=== PATIENT | female | born 1940 | race Caucasian/White ===

== ENCOUNTER 2021-07-16 05:58 | Emergency (ER) | payer MEDICARE ==
[2021-07-16] MEDS ORDERED: NORCO 5/325 MG PO ONE (06:47)
[2021-07-16] MEDS ORDERED: NORCO 5/325 MG ONE (06:51)
--- NOTE | 2021-07-16 06:55 | ERPHSYRPT ---
- History of Present Illness Source: patient Exam Limitations: no limitations Patient Subjective Stated Complaint: Patient fell at home at approx 0500 today. She denies hitting her head. She states she lost her footing while walking with her walker and just fell. Denies being dizzy prior to fall. She denies hitting any furniture or other objects while falling. States, "I just hit the floor." Her only c/o is pain in the center of her back. Triage Nursing Assessment: Patient arrived by ambulance. She is alert and oriented and answering questions appropriately. She has noticable tremors to BUE while resting in bed. PERRL. CASILLAS WNL for patient per her reports. No bruising, swelling, or abnormalities visibly noted to back. Occurred: this morning Reason for Fall: lost balance Injuries/Pain Location: head, upper extremity, back Loss of Consciousness: no loss of consciousness Quality: sharpness Severity of Pain-Max: moderate Severity of Pain-Current: moderate Modifying Factors: Improves With: rest. Worsens With: movement Associated Symptoms (Fall): back pain, extremity injury, headache, muscle spasms, trouble walking, No confusion, No chest pain, No dizziness, No lightheadedness, No neck pain, No ringing in ears, No seizures, No shortness of breath, No vision changes Hx Tetanus, Diphtheria Vaccination/Date Given: Yes Hx Influenza Vaccination/Date Given: Yes Hx Pneumococcal Vaccination/Date Given: Yes Immunizations Up to Date: Yes <KIMMY TAYLOR - Last Filed: 07/16/21 06:56> <JULY GONZALEZ - Last Filed: 07/16/21 08:14> - History of Present Illness Time Seen by Provider: 07/16/21 06:46 Physician History: 81-year-old female issues with balance at her baseline with questionable history of parkinsonism presented in the ER with chief complaint of fall this morning. Patient reports she woke up and was trying to get on her 4 mahoney, lost balance and fell backward hitting her back and head against the floor. No loss of consciousness. She is complaining of mild headache but reason for ER visit is pain in the mid and lower back moderate to severe sharp with movement and palpation and better with being still. No difficulty movements of lower extremities. Also have injury left thumb. Denies any chest pain palpitations or shortness of breath before or after the fall. No abdominal pain nausea or vomiting. (KIMMY TAYLOR) Allergies/Adverse Reactions: aripiprazole [From [facility]] Allergy (Verified 07/16/21 05:59) Home Medications: Divalproex Sodium [Depakote] 250 mg PO TID 07/16/21 [History] Levothyroxine Sodium 88 mcg PO DAILY 07/16/21 [History] Losartan Potassium 50 mg [Cozaar 50 MG] 50 mg PO DAILY 07/16/21 [History] Temazepam 15 mg [Restoril 15 MG] 30 mg PO HS 07/16/21 [History] Travel Risk - International Travel Have you traveled outside of the country in past 3 weeks: No - Coronavirus Screening Are you exhibiting any of the following symptoms?: No Close contact with a COVID-19 positive Pt in past 14-21 Days: No - Vaccine Status Have you recieved a Covid-19 vaccination: Yes [employer]: [employer] - Vaccination Dates Date of 2cond Vaccination (if applicable): December 2020 <KIMMY TAYLOR - Last Filed: 07/16/21 06:56> - Review of Systems Constitutional: No Symptoms Eyes: No Symptoms Ears, Nose, & Throat: No Symptoms Respiratory: No Symptoms Cardiac: No Symptoms Abdominal/Gastrointestinal: No Symptoms Genitourinary Symptoms: No Symptoms Musculoskeletal: Back Pain, Fall, Injury, Joint Redness, Joint Pain Skin: No Symptoms Neurological: Headache Psychological: No Symptoms Endocrine: No Symptoms Hematologic/Lymphatic: No Symptoms Immunological/Allergic: No Symptoms <KIMMY TAYLOR - Last Filed: 07/16/21 06:56> - Past Medical History Pertinent Past Medical History: Yes Neurological History: No Pertinent History ENT History: Cataracts Cardiac History: Hypertension Respiratory History: No Pertinent History Endocrine Medical History: Hypothyroidism Musculoskeletal History: Fractures Other Medical History: BIPOLAR DISORDER - SEES THERAPIST IN [place]. PATIENT WITH RESTING TREMORS. PATIENT REPORTS PARKINSONS RUNS IN THE FAMILY - MOTHER HAD IT AND BROTHER HAS IT. She has never been diagnosed with parkinsons by a doctor. - Past Surgical History Past Surgical History: Yes Gastrointestinal: Appendectomy, Cholecystectomy, Hernia Repair Musculoskeletal: No Pertinent History Female Surgical History: Tubal Ligation - Social History Smoking Status: Never smoker Exposure to second hand smoke: No Drug Use: none Patient Lives Alone: No - Female History Hx Now: No <KIMMY TAYLOR - Last Filed: 07/16/21 06:56> - Maben Coma Score Best Eye Response (Kira): (4) open spontaneously Best Verbal Response (Maben): (5) oriented Best Motor Response (Maben): (6) obeys commands Maben Total: 15 - Physical Exam General Appearance: no apparent distress, alert Head Injury: no evidence of injury, No lacerations, No raccoon eyes, No swelling, No tenderness Eye Exam: PERRL/EOMI, eyes nml inspection ENT Exam: airway nml, nml ext.inspection, No evidence of ENT injury, No dental injury Neck Exam: supple, trachea midline, full range of motion, normal alignment, normal inspection Respiratory/Chest Exam: normal breath sounds, respiratory distress, No chest tenderness Cardiovascular Exam: normal heart sounds, regular rate/rhythm Gastrointestinal Exam: soft, normal bowel sounds, tenderness (Minimal tenderness which is chronic from previous multiple surgeries) Back Exam: normal inspection, vertebral tenderness (Lower thoracic and lumbar spinal and paraspinal), decreased range of motion, muscle spasm Extremity Exam: normal range of motion, capillary refill <3 sec, pain with movement (Left thumb) Neurologic Exam: alert, oriented x 3, cooperative, siene maker II-XII nml as tested, normal mood/affect, sensation nml, No motor deficits Skin Exam: normal color SpO2 Interpretation: normal SpO2: 92 O2 Delivery: Room Air <KIMMY TAYLOR - Last Filed: 07/16/21 06:56> - Nursing Vital Signs Nursing Vital Signs: Initial Vital Signs Temperature 97.9 F 07/16/21 06:00 Pulse Rate 84 07/16/21 06:00 Respiratory Rate 14 07/16/21 06:00 Blood Pressure 178/99 07/16/21 06:00 O2 Sat by Pulse Oximetry 92 L 07/16/21 06:00 Pain Scale Pain Intensity 3 Ordered Tests: Active Orders 24 hr Category Date Time Status POCT Glucose Check STAT Care 07/16/21 06:51 Active CERVICAL SPINE WO CONTRAST [CT] Stat Exams 07/16/21 06:47 Taken HAND (MINIMUM 3 VIEWS) Stat Exams 07/16/21 Taken HEAD WITHOUT CONTRAST [CT] Stat Exams 07/16/21 06:47 Taken LUMBAR SPINE W/O [CT] Stat Exams 07/16/21 06:47 Taken THORACIC SPINE W/O CONTRAST [CT] Stat Exams 07/16/21 06:50 Taken POCT GLUCOSE Stat Lab 07/16/21 07:52 Completed POCT GLUCOSE Stat Lab 07/16/21 07:52 Received Medication Summary Discontinued Medications Generic Name Dose Route Start Last Admin Trade Name Zbigniew PRN Reason Stop Dose Admin Hydrocodone Bitart/Acetaminophen 1 tab 07/16/21 06:47 07/16/21 06:51 Hydrocodone/Apap 5/325 Mg Tablet PO 07/16/21 06:48 1 tab STAT ONE Administration Hydrocodone Bitart/Acetaminophen Confirm 07/16/21 06:51 Hydrocodone/Apap 5/325 Mg Tablet Administered 07/16/21 06:52 Dose 1 tab .ROUTE .STK-MED ONE Methylprednisolone Sodium 0 mg 07/16/21 08:00 Succinate 125 mg/ Sterile IV 07/16/21 08:01 Water 2 ml STAT ONE Lorazepam 0.5 mg 07/16/21 08:00 Lorazepam 2 Mg/1 Ml 2 Mg Vial IV 07/16/21 08:01 STAT ONE Morphine Sulfate 2 mg 07/16/21 07:59 Morphine Sulfate 2 Mg/Ml Inj IV 07/16/21 08:00 STAT ONE Ondansetron HCl 4 mg 07/16/21 07:59 Ondansetron Hcl 4 Mg/2 Ml Vial IV 07/16/21 08:00 STAT ONE Lab/Rad Data: Laboratory Results 07/16/21 Range/Units 07:52 POC Glucometer 102 (74 to 106) mg/dL - Progress Progress: unchanged <KIMMY TAYLOR - Last Filed: 07/16/21 06:56> - Progress Counseled pt/family regarding: diagnosis, need for follow-up, rad results <JULY GONZALEZ - Last Filed: 07/16/21 08:14> - Progress Progress Note: 07/16/21 06:56 Work-up is pending, care is transferred to Dr. Gonzalez at shift change. (KIMMY TAYLOR) 07/16/21 07:47 Left hand x-ray is negative for any acute fracture or dislocation. CT scan of the lumbar spine shows no acute fracture or subluxation. CT scan of thoracic spine shows a T11 compression fracture that is less than 25% height loss. There is no evidence of spinal cord encroachment or compression. CAT scan of the cervical spine without contrast shows no acute fracture or subluxation. CAT scan of the head shows no acute intracranial abnormality. There is no bony fractures. 07/16/21 08:10 Medical decision making: This patient has a less than 25% height loss T11 compression fracture without evidence of spinal cord encroachment. The plan is to provide her with medication acutely to help control her pain, be fitted for a thoracic spine fracture brace and then referral to back specialist for further management instructions including referral to physical therapy as indicated and referral to chronic pain specialist as indicated. (JULY GONZALEZ) <KIMMY TAYLOR - Last Filed: 07/16/21 06:56> - Departure Departure Disposition: Home Critical Care Time: No <JULY GONZALEZ - Last Filed: 07/16/21 08:14> - Departure Clinical Impression: Compression fracture of T11 vertebra, Fall with injury Condition: Stable Referrals: OLESYA ATKINSON MD [Primary Care Provider] - Follow up/PCP as directed Additional Instructions: Take your medications as prescribed. Follow-up with orthopedic/back clinic as an outpatient for further management and instructions. Minimize your activity to walking. Wear your back brace. Prescriptions: Hydrocodone/APAP 5/325 [Sharon 5/325 mg] 1 each PO Q8H PRN PRN #8 tablet MDD 3 PRN Reason: Pain Cyclobenzaprine HCl 5 mg PO TID #10 tablet Naproxen 500 mg [Naprosyn 500 MG] 500 mg PO BID #10 tablet
[2021-07-16] MEDS ORDERED: MORPHINE SULFATE 2 MG INJ IV ONE (07:59)
[2021-07-16] MEDS ORDERED: Zofran 4 MG/2 ML VIAL IV ONE (07:59)
[2021-07-16] MEDS ORDERED: Ativan 2 MG/1 ML VIAL IV ONE (08:00)
[2021-07-16] MEDS ORDERED: solu-MEDROL 125 MG, Sterile H2O 10 ml 2 ML IV ONE ×2 (08:00)
[2021-07-16] MEDS ORDERED: Ativan 2 MG/1 ML VIAL ONE (08:15)
[2021-07-16] MEDS ORDERED: solu-MEDROL ONE (08:15)
[2021-07-16 09:19] VITALS: BP 170/78; PULSE 81; O2SAT 94
--- NOTE | 2021-07-16 09:55 | XRAY ---
Indication: Status post fall. Multiple contiguous axial images obtained through the head without contrast. Comparison: None Age-appropriate global atrophy and minimal periventricular degenerative micro-ischemia. No acute intracranial hemorrhage, abnormal extra-axial fluid collection, or mass effect. Fourth ventricle is midline without hydrocephalus. Bony calvarium intact. Visualized paranasal sinuses and mastoid air cells are clear. Impression: Nonacute senile brain.
--- NOTE | 2021-07-16 09:57 | XRAY ---
Indication: Status post fall. Multiple contiguous axial images obtained through the cervical spine. Sagittal and coronal reformatted images obtained. Comparison: None Age-related osteopenia. Axial images negative for acute fracture, suspicious bony lesions, or spinal canal stenosis. Minimal multilevel endplate spurring and mild multilevel bilateral degenerative facet arthropathy. Sagittal and coronal reformatted images demonstrates normal alignment with mild C5-C7 degenerative disc space narrowing. No acute compression fracture, subluxation, or jumped facet. Normal appearing craniocervical junction. Visualized noncontrasted soft tissues demonstrates mild right and minimal left carotid calcifications. Lung apices are clear. Impression: 1. Negative acute fracture/subluxation. 2. Osteopenia and minimal/mild multilevel degenerative changes.
--- NOTE | 2021-07-16 09:59 | XRAY ---
Indication: Status post fall. Multiple contiguous axial images obtained through the thoracic spine. Sagittal and coronal reformatted images obtained. Comparison: None Age-related osteopenia. T11 vertebral body demonstrates nondisplaced minimal compression fracture with less than 25% height loss. No spinal canal or foraminal encroachment. Remaining levels demonstrates mild multilevel endplate spurring. Sagittal and coronal reformatted images demonstrates normal thoracic alignment. Disc spaces maintained. Visualized noncontrasted soft tissues demonstrates mild bilateral lung dependent atelectasis, mild scattered vascular calcifications, and cholecystectomy clips. Impression: 1. T11 compression fracture without spinal canal or foraminal compromise. 2. Osteopenia and mild multilevel degenerative changes.
--- NOTE | 2021-07-16 10:05 | XRAY ---
Indication: Status post fall. Multiple contiguous axial images obtained through the lumbar spine. Sagittal and coronal reformatted images obtained. Comparison: February 18, 2011. Age-related osteopenia. Axial images negative for acute fracture, suspicious bony lesions, or spinal canal stenosis. There remains minimal broad-based L4-S1 disc bulge and minimal L5-S1 degenerative vacuum disc phenomena. No obvious large disc herniation. Facets are symmetric. Sagittal and coronal reformatted images again demonstrates normal lumbar lordosis with stable minimal levoscoliosis and L5-S1 disc space narrowing. No acute compression fracture or subluxation. Visualized noncontrasted soft tissues demonstrates worsening scattered mild aortoiliac calcifications. Stable bilateral renal pelvocaliectasis. Impression: 1. Negative acute fracture/subluxation. 2. Again incidental osteopenia, L4-S1 degenerative disc disease, minimal scoliosis, mild arteriosclerotic disease, and bilateral renal pelvocaliectasis.
--- NOTE | 2021-07-16 10:07 | XRAY ---
Indication: Thumb swelling and bruising following fall. Comparison: None 3 view left hand demonstrates nondisplaced avulsion type fracture base distal 1st phalanx with soft tissue swelling. Elsewhere incidental osteopenia, moderate 1st metacarpal multangular degenerative arthropathy, mild degenerative changes all IP joints, and radiocarpal joint space loss.
== END 2021-07-16 09:18 | disposition home or self-care (01) ==
LOC: ED 05:58
DX: S22.080A Wedge compression fracture of T11-T12 vertebra, initial encounter for closed fracture (principal); W01.0XXA Fall on same level from slipping, tripping and stumbling without subsequent striking against object, initial encounter; Z91.81 History of falling; Y92.009 Unspecified place in unspecified non-institutional (private) residence as the place of occurrence of the external cause; R51.9 Headache, unspecified; I10 Essential (primary) hypertension; R25.1 Tremor, unspecified; Z79.891 Long term (current) use of opiate analgesic
CPT/HCPCS: 70450; 72125; 72128; 72131; 73130; 82947; 96374; 96375; 99284; J2060; J2930; A9270-GY

== ENCOUNTER 2021-12-04 07:36 | Emergency (ER) | payer MEDICARE ==
[2021-12-04] MEDS ORDERED: APRESOLINE 20 MG/ML INJ IV ONE ×2 (08:10→09:51)
[2021-12-04] MEDS ORDERED: APRESOLINE 20 MG/ML INJ ONE ×2 (08:11→11:13)
--- NOTE | 2021-12-04 08:12 | ERPHSYRPT ---
- History of Present Illness Source: EMS Exam Limitations: clinical condition Patient Subjective Stated Complaint: PT HERE FOR GENERALIZED WEAKNESS,EMS WAS CALLED TO HOUSE FOR A PT WHO WAS LETHERGIC. PT IS A POOR HISTORIAN, FAMILY NOT HERE AT TRIAGE, EMS STATES SHE FELL YESTERDAY AND WAS SEEN BY FAMILY, PT DENIES ANY PAIN OR INJURY Triage Nursing Assessment: PT ALERT BUT CONFUSED TO TIME AND PLACE, HAS FACIAL DROOPING, AND SOME SLURRED SPEECH, MOVES ALL EXT WELL. PT HAS ABRASIONS TO UPPER LIP AND FORHEAD, Physician History: 81 yo wf w MSC of unknown time frame. EMS states that pt fell yesterday and was seen by her PCP yesterday. Pt arrived w good airway, marginally alert, and oriented to name only. She has a R facial droop and appears to have generalized weakness. Pt is pleasant and is in NAD at this time. Timing/Duration: other (Unknown) Severity: moderate Character of Deficits: new weakness (L facial droop), Right Facial Deficits: cannot stand Baseline/Normal Cognition: alert but confused Current Cognition: alert/disoriented to time (and place) Associated Symptoms: confusion, slurred speech Allergies/Adverse Reactions: aripiprazole [From [employer]Novadiol] Allergy (Verified 12/04/21 08:01) Home Medications: Divalproex Sodium [Depakote] 250 mg PO TID 07/16/21 [History] Levothyroxine Sodium 88 mcg PO DAILY 07/16/21 [History] Losartan Potassium 50 mg [Cozaar 50 MG] 50 mg PO DAILY 07/16/21 [History] Temazepam 15 mg [Restoril 15 MG] 30 mg PO HS 07/16/21 [History] Carbidopa/Levodopa 25/100 mg [Sinemet 25/100 MG] 1 ea DAILY 12/04/21 [History] Gabapentin 300 mg [Neurontin 300 mg] 1 ea BID 12/04/21 [History] Hx Tetanus, Diphtheria Vaccination/Date Given: Yes Hx Influenza Vaccination/Date Given: Yes Hx Pneumococcal Vaccination/Date Given: Yes Immunizations Up to Date: Yes Travel Risk - International Travel Have you traveled outside of the country in past 3 weeks: No - Coronavirus Screening Are you exhibiting any of the following symptoms?: No - Vaccine Status Have you recieved a Covid-19 vaccination: Yes Vice President Diversity: Moderna - Vaccination Dates Date of 2cond Vaccination (if applicable): December 2020 - Review of Systems All Other Systems: Unable due to condition - Past Medical History Pertinent Past Medical History: Yes Neurological History: No Pertinent History ENT History: Cataracts Cardiac History: Hypertension Respiratory History: No Pertinent History Endocrine Medical History: Hypothyroidism Musculoskeletal History: Fractures Other Medical History: BIPOLAR DISORDER - SEES THERAPIST IN [place]. P ATIENT WITH RESTING TREMORS. PATIENT REPORTS PARKINSONS RUNS IN THE FAMILY - MOTHER HAD IT AND BROTHER HAS IT. She has never been diagnosed with parkinsons by a doctor. - Past Surgical History Past Surgical History: Yes Gastrointestinal: Appendectomy, Cholecystectomy, Hernia Repair Musculoskeletal: No Pertinent History Female Surgical History: Tubal Ligation - Social History Smoking Status: Never smoker Exposure to second hand smoke: No Drug Use: none Patient Lives Alone: No Significant Family History: no pertinent family hx - Nursing Vital Signs Nursing Vital Signs: Initial Vital Signs Temperature 97.0 F 12/04/21 07:41 Pulse Rate 68 12/04/21 07:41 Respiratory Rate 16 12/04/21 07:41 Blood Pressure 209/93 12/04/21 07:41 O2 Sat by Pulse Oximetry 95 12/04/21 07:41 Pain Scale Pain Intensity 0 Hypertensive - Kira Coma Scale Best Eye Response (Kira): (3) open to voice Best Verbal Response (Anderson): (4) confused conversation Best Motor Response (Kira): (6) obeys commands Anderson Total: 13 - Physical Exam General Appearance: lethargy Eye Exam: bilateral eye: normal inspection, PERRL Ears, Nose, Throat Exam: normal ENT inspection, TMs normal, pharynx normal, moist mucous membranes Neck Exam: normal inspection, non-tender, supple, full range of motion, No meningismus, No mass, No Brudzinski, No Kernig's, No carotid bruit Respiratory: airway intact, crackles/rales (Rales bases L>R) Cardiovascular: regular rate/rhythm, normal heart sounds, normal peripheral pulses, No murmur Gastrointestinal: soft, normal bowel sounds, No tenderness Back Exam: normal inspection Extremity Exam: pedal edema (1+B) Mental Status: cooperative, depressed affect, disoriented to place, disoriented to time, lethargy, 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 Exam: PERRL, facial droop (L sided facial droop), No abnormal eye position Motor/Sensory: negative Babinski's sign, weak motor strength RUE (Pt appears to have symmetric upper/lower extremity weakness), weak motor strength LUE, weak m otor strength RLE, weak motor strength LLE DTR: bicep (R): 2+, bicep (L): 2+ Skin Exam: normal color, warm, dry, No rash SpO2 Interpretation: normal SpO2: 95 O2 Delivery: Room Air - Course Nursing assessment & vital signs reviewed: Yes EKG Interpreted by Me: RATE (NSR/R62/Normal QT-QTc/Nonspecific Twave abnormality V3-V6) - Radiology Exams Chest X-ray Interpretation: Discussed w/ radiologist (Nothing acute) - CT Exams Head CT Interpretation: Discussed w/radiologist (2x2.5x2cm area of hypoattenuation R occipital lobe of undetermined chronicity) Ordered Tests: Active Orders 24 hr Category Date Time Status EKG-ER Only STAT Care 12/04/21 07:48 Completed NPO (ED) STAT Care 12/04/21 07:47 Completed CHEST 1 VIEW (PORTABLE) Stat Exams 12/04/21 07:47 Completed HEAD WITHOUT CONTRAST [CT] Stat Exams 12/04/21 07:47 Completed ABG [ARTERIAL BLOOD GASES] Stat Lab 12/04/21 08:55 Completed ACETAMINOPHEN Stat Lab 12/04/21 08:04 Completed CBC W DIFF Stat Lab 12/04/21 08:04 Completed CMP Stat Lab 12/04/21 08:04 Completed CULTURE,URINE Stat Lab 12/04/21 08:30 Received ETHYL ALCOHOL Stat Lab 12/04/21 08:04 Completed Lactic Acid Stat Lab 12/04/21 07:58 Completed PROTIME WITH INR Stat Lab 12/04/21 08:04 Completed PTT Stat Lab 12/04/21 08:04 Completed SALICYLATE Stat Lab 12/04/21 08:04 Completed T4 (Thyroxine) Stat Lab 12/04/21 08:04 Completed TROPONIN Q3H Lab 12/04/21 08:04 Completed TROPONIN Q3H Lab 12/04/21 11:30 Completed TSH [TSH, 3RD Generation] Stat Lab 12/04/21 08:04 Completed UA W/RFX CULTURE Stat Lab 12/04/21 08:30 Completed Urine Triage Profile Stat Lab 12/04/21 08:50 Completed Medication Summary Discontinued Medications Generic Name Dose Route Start Last Admin Trade Name Zbigniew PRN Reason Stop Dose Admin Aspirin 300 mg 12/04/21 08:19 12/04/21 08:25 Aspirin 300 Mg Supp.Rect RC 12/04/21 08:20 300 mg STAT STA Administration Aspirin Confirm 12/04/21 08:20 Aspirin 300 Mg Supp.Rect Administered 12/04/21 08:21 Dose 300 mg RC .STK-MED ONE Hydralazine HCl 10 mg 12/04/21 08:10 12/04/21 08:12 Hydralazine Hcl 20 Mg/Ml Vial IV 12/04/21 08:11 10 mg STAT ONE Administration Hydralazine HCl Confirm 12/04/21 08:11 Hydralazine Hcl 20 Mg/Ml Vial Administered 12/04/21 08:12 Dose 20 mg .ROUTE .STK-MED ONE Hydralazine HCl 10 mg 12/04/21 09:51 12/04/21 09:58 Hydralazine Hcl 20 Mg/Ml Vial IV 12/04/21 09:52 10 mg STAT ONE Administration Hydralazine HCl Confirm 12/04/21 11:13 Hydralazine Hcl 20 Mg/Ml Vial Administered 12/04/21 11:14 Dose 20 mg .ROUTE .STK-MED ONE Lab/Rad Data: Laboratory Result Diagrams 12/04/21 08:04 12/04/21 08:04 Laboratory Results 12/04/21 12/04/21 12/04/21 Range/Units 11:30 08:55 08:50 WBC (4.0-10.5) K/mm3 RBC (4.1-5.4) M/mm3 Hgb (12.0-16.0) gm/dl Hct (35-47) % MCV (78-100) fl MCH (26-32) pg MCHC (32-36) g/dl RDW (11.5-14.0) % Plt Count (150-450) K/mm3 MPV (7.5-11.0) fl Gran % (36.0-66.0) % Eos # (Auto) (0-0.5) Absolute Lymphs (auto) (1.0-4.6) Absolute Monos (auto) (0.0-1.3) Lymphocytes % (24.0-44.0) % Monocytes % (0.0-12.0) % Eosinophils % (0.00-5.0) % Basophils % (0.0-0.4) % Absolute Granulocytes (1.4-6.9) Basophils # (0-0.4) PT (9.4-12.5) SECONDS INR (0.8-3.0) APTT (25.1-36.5) SECONDS Puncture Site LEFT RADIAL pCO2 36 (35-45) mmHg pO2 90 (75-100) mmHg Base Excess 4.1 H (-2.0-2.0) O2 Saturation 95.9 (94-100) g/dF ABG pH 7.49 H (7.35-7.45) ABG HCO3 27.4 (22-28) ABG O2 Sat (Measured) 98.5 (95-100) % Jose Test YES A-a Gradient 15 a/A Ratio 0.86 Hemoglobin 15.1 Carboxyhemoglobin 1.3 (0.0-6.9) % THgb Methemoglobin 1.3 L (1.4-1.5) % Temperature 37.0 C POC O2 Flow Rate 21 % Sodium (137-145) mmol/L Potassium 3.6 (3.5-5.1) mmol/L Chloride (98-107) mmol/L Carbon Dioxide (22-30) mmol/L Anion Gap (5-15) MEQ/L BUN (7-17) mg/dL Creatinine (0.52-1.04) mg/dL Estimated GFR ML/MIN Glucose (74-106) mg/dL Lactic Acid (0.4-2.0) Calcium (8.4-10.2) mg/dL Total Bilirubin (0.2-1.3) mg/dL AST (14-36) U/L ALT (0-35) U/L Alkaline Phosphatase (38-126) U/L Troponin I < 0.012 (0.000-0.034) ng/mL Serum Total Protein (6.3-8.2) g/dL Albumin (3.5-5.0) g/dL Thyroxine (T4) (5.53-10.96) ug/dL TSH 3rd Generation (0.47-4.68) mIU/L Urinalys Dipstick Clnc Urine Color (YELLOW) Urine Appearance (CLEAR) Urine pH (5-6) Ur Specific [place] (1.005-1.025) POC Urine Protein Conf (Negative) Urine Ketones (NEGATIVE) Urine Nitrite (NEGATIVE) Urine Bilirubin (NEGATIVE) Urine Urobilinogen (0-1) mg/dL Urine Leukocytes (NEGATIVE) Urine WBC (Auto) (0-5) /HPF Urine RBC (Auto) (0-2) /HPF U Epithel Cells (Auto) (FEW) /HPF Urine Bacteria (Auto) (NEGATIVE) /HPF Urine RBC (0-5) Hayder/ul Urine Mucus (Auto) (NEGATIVE) /HPF Ur Culture Indicated? Urine Glucose (NEGATIVE) mg/dL Salicylates (2-20) mg/dL Urine Opiates Level NEGATIVE (NEGATIVE) Ur Methadone NEGATIVE (NEGATIVE) Acetaminophen (10-30) ug/ml Urine Barbiturates NEGATIVE (NEGATIVE) Ur Phencyclidine (PCP) NEGATIVE (NEGATIVE) Urine Amphetamine NEGATIVE (NEGATIVE) U Benzodiazepine Level NEGATIVE (NEGATIVE) Urine Cocaine NEGATIVE (NEGATIVE) Urine Marijuana (THC) NEGATIVE (NEGATIVE) Ethyl Alcohol (0-10) mg/dL Influenza Type A Ag (NEGATIVE) Influenza Type B Ag (NEGATIVE) RSV (PCR) (Negative) SARS-CoV-2 (PCR) (NEGATIVE) 12/04/21 12/04/21 12/04/21 Range/Units 08:30 08:30 08:04 WBC (4.0-10.5) K/mm3 RBC (4.1-5.4) M/mm3 Hgb (12.0-16.0) gm/dl Hct (35-47) % MCV (78-100) fl MCH (26-32) pg MCHC (32-36) g/dl RDW (11.5-14.0) % Plt Count (150-450) K/mm3 MPV (7.5-11.0) fl Gran % (36.0-66.0) % Eos # (Auto) (0-0.5) Absolute Lymphs (auto) (1.0-4.6) Absolute Monos (auto) (0.0-1.3) Lymphocytes % (24.0-44.0) % Monocytes % (0.0-12.0) % Eosinophils % (0.00-5.0) % Basophils % (0.0-0.4) % Absolute Granulocytes (1.4-6.9) Basophils # (0-0.4) PT (9.4-12.5) SECONDS INR (0.8-3.0) APTT (25.1-36.5) SECONDS Puncture Site pCO2 (35-45) mmHg pO2 (75-100) mmHg Base Excess (-2.0-2.0) O2 Saturation (94-100) g/dF ABG pH (7.35-7.45) ABG HCO3 (22-28) ABG O2 Sat (Measured) (95-100) % Jose Test A-a Gradient a/A Ratio Hemoglobin Carboxyhemoglobin (0.0-6.9) % THgb Methemoglobin (1.4-1.5) % Temperature C POC O2 Flow Rate % Sodium (137-145) mmol/L Potassium (3.5-5.1) mmol/L Chloride (98-107) mmol/L Carbon Dioxide (22-30) mmol/L Anion Gap (5-15) MEQ/L BUN (7-17) mg/dL Creatinine (0.52-1.04) mg/dL Estimated GFR ML/MIN Glucose (74-106) mg/dL Lactic Acid (0.4-2.0) Calcium (8.4-10.2) mg/dL Total Bilirubin (0.2-1.3) mg/dL AST (14-36) U/L ALT (0-35) U/L Alkaline Phosphatase (38-126) U/L Troponin I (0.000-0.034) ng/mL Serum Total Protein (6.3-8.2) g/dL Albumin (3.5-5.0) g/dL Thyroxine (T4) (5.53-10.96) ug/dL TSH 3rd Generation (0.47-4.68) mIU/L Urinalys Dipstick Clnc MAIN LAB Urine Color YELLOW (YELLOW) Urine Appearance CLEAR (CLEAR) Urine pH 7.0 (5-6) Ur Specific [place] 1.015 (1.005-1.025) POC Urine Protein Conf NEGATIVE (Negative) Urine Ketones NEGATIVE (NEGATIVE) Urine Nitrite NEGATIVE (NEGATIVE) Urine Bilirubin NEGATIVE (NEGATIVE) Urine Urobilinogen NORMAL (0-1) mg/dL Urine Leukocytes NEGATIVE (NEGATIVE) Urine WBC (Auto) 3-5 (0-5) /HPF Urine RBC (Auto) 0-2 (0-2) /HPF U Epithel Cells (Auto) NONE (FEW) /HPF Urine Bacteria (Auto) NONE SEEN (NEGATIVE) /HPF Urine RBC NEGATIVE (0-5) Hayder/ul Urine Mucus (Auto) SLIGHT (NEGATIVE) /HPF Ur Culture Indicated? NO Urine Glucose NEGATIVE (NEGATIVE) mg/dL Salicylates < 1.0 L (2-20) mg/dL Urine Opiates Level (NEGATIVE) Ur Methadone (NEGATIVE) Acetaminophen < 10 L (10-30) ug/ml Urine Barbiturates (NEGATIVE) Ur Phencyclidine (PCP) (NEGATIVE) Urine Amphetamine (NEGATIVE) U Benzodiazepine Level (NEGATIVE) Urine Cocaine (NEGATIVE) Urine Marijuana (THC) (NEGATIVE) Ethyl Alcohol < 10 (0-10) mg/dL Influenza Type A Ag NEGATIVE (NEGATIVE) Influenza Type B Ag NEGATIVE (NEGATIVE) RSV (PCR) NEGATIVE (Negative) SARS-CoV-2 (PCR) NEGATIVE (NEGATIVE) 12/04/21 12/04/21 12/04/21 Range/Units 08:04 08:04 08:04 WBC (4.0-10.5) K/mm3 RBC (4.1-5.4) M/mm3 Hgb (12.0-16.0) gm/dl Hct (35-47) % MCV (78-100) fl MCH (26-32) pg MCHC (32-36) g/dl RDW (11.5-14.0) % Plt Count (150-450) K/mm3 MPV (7.5-11.0) fl Gran % (36.0-66.0) % Eos # (Auto) (0-0.5) Absolute Lymphs (auto) (1.0-4.6) Absolute Monos (auto) (0.0-1.3) Lymphocytes % (24.0-44.0) % Monocytes % (0.0-12.0) % Eosinophils % (0.00-5.0) % Basophils % (0.0-0.4) % Absolute Granulocytes (1.4-6.9) Basophils # (0-0.4) PT (9.4-12.5) SECONDS INR (0.8-3.0) APTT (25.1-36.5) SECONDS Puncture Site pCO2 (35-45) mmHg pO2 (75-100) mmHg Base Excess (-2.0-2.0) O2 Saturation (94-100) g/dF ABG pH (7.35-7.45) ABG HCO3 (22-28) ABG O2 Sat (Measured) (95-100) % Jose Test A-a Gradient a/A Ratio Hemoglobin Carboxyhemoglobin (0.0-6.9) % THgb Methemoglobin (1.4-1.5) % Temperature C POC O2 Flow Rate % Sodium (137-145) mmol/L Potassium (3.5-5.1) mmol/L Chloride (98-107) mmol/L Carbon Dioxide (22-30) mmol/L Anion Gap (5-15) MEQ/L BUN (7-17) mg/dL Creatinine (0.52-1.04) mg/dL Estimated GFR ML/MIN Glucose (74-106) mg/dL Lactic Acid (0.4-2.0) Calcium (8.4-10.2) mg/dL Total Bilirubin (0.2-1.3) mg/dL AST (14-36) U/L ALT (0-35) U/L Alkaline Phosphatase (38-126) U/L Troponin I < 0.012 (0.000-0.034) ng/mL Serum Total Protein (6.3-8.2) g/dL Albumin (3.5-5.0) g/dL Thyroxine (T4) 7.74 (5.53-10.96) ug/dL TSH 3rd Generation 4.550 (0.47-4.68) mIU/L Urinalys Dipstick Clnc Urine Color (YELLOW) Urine Appearance (CLEAR) Urine pH (5-6) Ur Specific [place] (1.005-1.025) POC Urine Protein Conf (Negative) Urine Ketones (NEGATIVE) Urine Nitrite (NEGATIVE) Urine Bilirubin (NEGATIVE) Urine Urobilinogen (0-1) mg/dL Urine Leukocytes (NEGATIVE) Urine WBC (Auto) (0-5) /HPF Urine RBC (Auto) (0-2) /HPF U Epithel Cells (Auto) (FEW) /HPF Urine Bacteria (Auto) (NEGATIVE) /HPF Urine RBC (0-5) Hayder/ul Urine Mucus (Auto) (NEGATIVE) /HPF Ur Culture Indicated? Urine Glucose (NEGATIVE) mg/dL Salicylates (2-20) mg/dL Urine Opiates Level (NEGATIVE) Ur Methadone (NEGATIVE) Acetaminophen (10-30) ug/ml Urine Barbiturates (NEGATIVE) Ur Phencyclidine (PCP) (NEGATIVE) Urine Amphetamine (NEGATIVE) U Benzodiazepine Level (NEGATIVE) Urine Cocaine (NEGATIVE) Urine Marijuana (THC) (NEGATIVE) Ethyl Alcohol (0-10) mg/dL Influenza Type A Ag (NEGATIVE) Influenza Type B Ag (NEGATIVE) RSV (PCR) (Negative) SARS-CoV-2 (PCR) (NEGATIVE) 12/04/21 12/04/21 12/04/21 Range/Units 08:04 08:04 08:04 WBC 4.6 (4.0-10.5) K/mm3 RBC 4.79 (4.1-5.4) M/mm3 Hgb 14.9 (12.0-16.0) gm/dl Hct 45.9 (35-47) % MCV 95.8 (78-100) fl MCH 31.1 (26-32) pg MCHC 32.5 (32-36) g/dl RDW 14.1 H (11.5-14.0) % Plt Count 168 (150-450) K/mm3 MPV 10.3 (7.5-11.0) fl Gran % 57.2 (36.0-66.0) % Eos # (Auto) 0.04 (0-0.5) Absolute Lymphs (auto) 1.45 (1.0-4.6) Absolute Monos (auto) 0.47 (0.0-1.3) Lymphocytes % 31.5 (24.0-44.0) % Monocytes % 10.2 (0.0-12.0) % Eosinophils % 0.9 (0.00-5.0) % Basophils % 0.2 (0.0-0.4) % Absolute Granulocytes 2.63 (1.4-6.9) Basophils # 0.01 (0-0.4) PT 11.9 (9.4-12.5) SECONDS INR 1.01 (0.8-3.0) APTT 32.1 (25.1-36.5) SECONDS Puncture Site pCO2 (35-45) mmHg pO2 (75-100) mmHg Base Excess (-2.0-2.0) O2 Saturation (94-100) g/dF ABG pH (7.35-7.45) ABG HCO3 (22-28) ABG O2 Sat (Measured) (95-100) % Jose Test A-a Gradient a/A Ratio Hemoglobin Carboxyhemoglobin (0.0-6.9) % THgb Methemoglobin (1.4-1.5) % Temperature C POC O2 Flow Rate % Sodium 139 (137-145) mmol/L Potassium 4.2 (3.5-5.1) mmol/L Chloride 104 (98-107) mmol/L Carbon Dioxide 26 (22-30) mmol/L Anion Gap 13.7 (5-15) MEQ/L BUN 13 (7-17) mg/dL Creatinine 0.80 (0.52-1.04) mg/dL Estimated GFR > 60.0 ML/MIN Glucose 91 (74-106) mg/dL Lactic Acid (0.4-2.0) Calcium 8.9 (8.4-10.2) mg/dL Total Bilirubin 0.50 (0.2-1.3) mg/dL AST 19 (14-36) U/L ALT 8 (0-35) U/L Alkaline Phosphatase 53 (38-126) U/L Troponin I (0.000-0.034) ng/mL Serum Total Protein 6.9 (6.3-8.2) g/dL Albumin 3.8 (3.5-5.0) g/dL Thyroxine (T4) (5.53-10.96) ug/dL TSH 3rd Generation (0.47-4.68) mIU/L Urinalys Dipstick Clnc Urine Color (YELLOW) Urine Appearance (CLEAR) Urine pH (5-6) Ur Specific [place] (1.005-1.025) POC Urine Protein Conf (Negative) Urine Ketones (NEGATIVE) Urine Nitrite (NEGATIVE) Urine Bilirubin (NEGATIVE) Urine Urobilinogen (0-1) mg/dL Urine Leukocytes (NEGATIVE) Urine WBC (Auto) (0-5) /HPF Urine RBC (Auto) (0-2) /HPF U Epithel Cells (Auto) (FEW) /HPF Urine Bacteria (Auto) (NEGATIVE) /HPF Urine RBC (0-5) Hayder/ul Urine Mucus (Auto) (NEGATIVE) /HPF Ur Culture Indicated? Urine Glucose (NEGATIVE) mg/dL Salicylates (2-20) mg/dL Urine Opiates Level (NEGATIVE) Ur Methadone (NEGATIVE) Acetaminophen (10-30) ug/ml Urine Barbiturates (NEGATIVE) Ur Phencyclidine (PCP) (NEGATIVE) Urine Amphetamine (NEGATIVE) U Benzodiazepine Level (NEGATIVE) Urine Cocaine (NEGATIVE) Urine Marijuana (THC) (NEGATIVE) Ethyl Alcohol (0-10) mg/dL Influenza Type A Ag (NEGATIVE) Influenza Type B Ag (NEGATIVE) RSV (PCR) (Negative) SARS-CoV-2 (PCR) (NEGATIVE) 12/04/21 Range/Units 07:58 WBC (4.0-10.5) K/mm3 RBC (4.1-5.4) M/mm3 Hgb (12.0-16.0) gm/dl Hct (35-47) % MCV (78-100) fl MCH (26-32) pg MCHC (32-36) g/dl RDW (11.5-14.0) % Plt Count (150-450) K/mm3 MPV (7.5-11.0) fl Gran % (36.0-66.0) % Eos # (Auto) (0-0.5) Absolute Lymphs (auto) (1.0-4.6) Absolute Monos (auto) (0.0-1.3) Lymphocytes % (24.0-44.0) % Monocytes % (0.0-12.0) % Eosinophils % (0.00-5.0) % Basophils % (0.0-0.4) % Absolute Granulocytes (1.4-6.9) Basophils # (0-0.4) PT (9.4-12.5) SECONDS INR (0.8-3.0) APTT (25.1-36.5) SECONDS Puncture Site pCO2 (35-45) mmHg pO2 (75-100) mmHg Base Excess (-2.0-2.0) O2 Saturation (94-100) g/dF ABG pH (7.35-7.45) ABG HCO3 (22-28) ABG O2 Sat (Measured) (95-100) % Jose Test A-a Gradient a/A Ratio Hemoglobin Carboxyhemoglobin (0.0-6.9) % THgb Methemoglobin (1.4-1.5) % Temperature C POC O2 Flow Rate % Sodium (137-145) mmol/L Potassium (3.5-5.1) mmol/L Chloride (98-107) mmol/L Carbon Dioxide (22-30) mmol/L Anion Gap (5-15) MEQ/L BUN (7-17) mg/dL Creatinine (0.52-1.04) mg/dL Estimated GFR ML/MIN Glucose (74-106) mg/dL Lactic Acid 0.8 (0.4-2.0) Calcium (8.4-10.2) mg/dL Total Bilirubin (0.2-1.3) mg/dL AST (14-36) U/L ALT (0-35) U/L Alkaline Phosphatase (38-126) U/L Troponin I (0.000-0.034) ng/mL Serum Total Protein (6.3-8.2) g/dL Albumin (3.5-5.0) g/dL Thyroxine (T4) (5.53-10.96) ug/dL TSH 3rd Generation (0.47-4.68) mIU/L Urinalys Dipstick Clnc Urine Color (YELLOW) Urine Appearance (CLEAR) Urine pH (5-6) Ur Specific [place] (1.005-1.025) POC Urine Protein Conf (Negative) Urine Ketones (NEGATIVE) Urine Nitrite (NEGATIVE) Urine Bilirubin (NEGATIVE) Urine Urobilinogen (0-1) mg/dL Urine Leukocytes (NEGATIVE) Urine WBC (Auto) (0-5) /HPF Urine RBC (Auto) (0-2) /HPF U Epithel Cells (Auto) (FEW) /HPF Urine Bacteria (Auto) (NEGATIVE) /HPF Urine RBC (0-5) Hayder/ul Urine Mucus (Auto) (NEGATIVE) /HPF Ur Culture Indicated? Urine Glucose (NEGATIVE) mg/dL Salicylates (2-20) mg/dL Urine Opiates Level (NEGATIVE) Ur Methadone (NEGATIVE) Acetaminophen (10-30) ug/ml Urine Barbiturates (NEGATIVE) Ur Phencyclidine (PCP) (NEGATIVE) Urine Amphetamine (NEGATIVE) U Benzodiazepine Level (NEGATIVE) Urine Cocaine (NEGATIVE) Urine Marijuana (THC) (NEGATIVE) Ethyl Alcohol (0-10) mg/dL Influenza Type A Ag (NEGATIVE) Influenza Type B Ag (NEGATIVE) RSV (PCR) (Negative) SARS-CoV-2 (PCR) (NEGATIVE) - Progress Progress: unchanged Progress Note: 12/04/21 08:37 10mg IV HYdralyzine w mild decrease in BP 12/04/21 09:25 300mg rectal Aspirin Pt accepted by Dr Pennington at [place] 12/04/21 10:[address] Landin(Hospitalist at [place]) 12/04/21 17:44 10mg IV Hydralyzine when BP increased again w good results 12/04/21 17:46 Pt maintained good airway and was easily arouseable during entire stay Counseled pt/family regarding: lab results, diagnosis, rad results - Departure Departure Disposition: Transfer Clinical Impression: CVA (cerebral vascular accident) Condition: Stable Critical Care Time: Yes Critical Care Time(excluding separately billable procedures): Critical 30-74 mins Referrals: OLESYA ATKINSON MD [Primary Care Provider] - Follow up/PCP as directed
[2021-12-04] MEDS ORDERED: ASPIRIN RC STA (08:19)
[2021-12-04] MEDS ORDERED: ASPIRIN RC ONE (08:20)
[2021-12-04 08:23] LABS: Absolute Neutrophil Ct (ANC) 2.63 (1.4-6.9); Basophil (Absolute #) 0.01 (0-0.4); Eosinophil % 0.9 % (0.00-5.0); Eosinophil (Absolute #) 0.04 (0-0.5); Hematocrit 45.9 % (35-47); Hemoglobin 14.9 gm/dl (12.0-16.0); Lymphocyte (Absolute #) 1.45 (1.0-4.6); Lymphocytes % 31.5 % (24.0-44.0); Mean Cell Volume 95.8 fl (78-100); Mean Corpuscular Hemoglobin 31.1 pg (26-32); Mean Corpuscular Hgb Concent. 32.5 g/dl (32-36); Mean Platelet Volume 10.3 fl (7.5-11.0); Monocyte (Absolute #) 0.47 (0.0-1.3); Monocytes % 10.2 % (0.0-12.0); Neutrophil % 57.2 % (36.0-66.0); Platelet Count 168 K/mm3 (150-450); Red Blood Count 4.79 M/mm3 (4.1-5.4); Red Cell Distribution Width 14.1 % (11.5-14.0); White Blood Count 4.6 K/mm3 (4.0-10.5)
[2021-12-04 08:27] LABS: ALBUMIN 3.8 g/dL (3.5-5.0); ALKALINE PHOSPHATASE 53 U/L (38-126); ANION GAP 13.7 MEQ/L (5-15); BLOOD UREA NITROGEN 13 mg/dL (7-17); CHLORIDE 104 mmol/L (98-107); Calcium 8.9 mg/dL (8.4-10.2); Carbon Dioxide 26 mmol/L (22-30); EST GLOMERULAR FILTRATION RATE > 60.0 ML/MIN; Glucose 91 mg/dL (74-106); Potassium 4.2 mmol/L (3.5-5.1); SGOT/AST 19 U/L (14-36); SGPT/ALT 8 U/L (0-35); SODIUM 139 mmol/L (137-145); Total Protein 6.9 g/dL (6.3-8.2)
[2021-12-04 08:30] LABS: INR 1.01 (0.8-3.0); PROTIME 11.9 SECONDS (9.4-12.5)
[2021-12-04 08:32] LABS: PTT 32.1 SECONDS (25.1-36.5)
[2021-12-04 08:48] LABS: Appearance CLEAR (CLEAR); Bilirubin NEGATIVE (NEGATIVE); Dipstick done @ ? MAIN LAB; Glucose NEGATIVE (NEGATIVE); Ketones NEGATIVE (NEGATIVE); Nitrite NEGATIVE (NEGATIVE); Protein,Urine Dip NEGATIVE (Negative); RBC NEGATIVE Ery/ul (0-5); Specific Gravity 1.015 (1.005-1.025); Urobilinogen NORMAL mg/dL (0-1)
[2021-12-04 08:49] LABS: Mucus SLIGHT /HPF (NEGATIVE); RBC 0-2 /HPF (0-2)
[2021-12-04 08:50] LABS: Bacteria NONE SEEN /HPF (NEGATIVE); Urine Cultured Indicated? NO
--- NOTE | 2021-12-04 08:55 | XRAY ---
Indication: CVA. Comparison: None Portable chest underinflated with minimal bibasilar subsegmental atelectasis/scarring. No focal infiltrate, consolidation, or large effusion. Heart not enlarged. Bony thorax intact with mild osteopenia and degenerative changes. Upper abdomen demonstrates multiple epigastric surgical clips. Impression: Nonacute underinflated chest with chronic features.
--- NOTE | 2021-12-04 08:55 | XRAY ---
Indication: Stroke. Multiple contiguous axial images obtained through the head without contrast. Comparison: July 16, 2021. Again age-appropriate global atrophy with worsening minimal degenerative micro-ischemia bilaterally. Right occipital lobe demonstrates new 2.0 x 2.5 x 2.0 cm focus of hypoattenuation favoring ischemia of uncertain chronicity. No acute intracranial hemorrhage, hydrocephalus, or mass effect. Fourth ventricle is midline. Bony calvarium intact. Visualized paranasal sinuses and mastoid air cells are clear. Impression: 1. New small right occipital ischemia of uncertain chronicity. MRI may yield further information. 2. Again atrophy and degenerative micro-ischemia within normal limits for patient's age.
[2021-12-04 09:00] LABS: ACETAMINOPHEN < 10 ug/ml (10-30); ETHYL ALCOHOL < 10 mg/dL (0-10); SALICYLATE < 1.0 mg/dL (2-20)
[2021-12-04 09:04] LABS: A-aADO2 15; ABG HEMOGLOBIN 15.1; ABG POTASSIUM 3.6 (3.5-5.1); ABG SITE LEFT RADIAL; ALLEN TEST OK? YES; ARTERIAL BLD GAS O2 SATURATION 98.5 % (95-100); ARTERIAL BLOOD GAS BASE EXCESS 4.1 (-2.0-2.0); ARTERIAL BLOOD GAS FIO2 21 %; ARTERIAL BLOOD GAS PCO2 36 mmHg (35-45); ARTERIAL BLOOD GAS PO2 90 mmHg (75-100); ARTERIAL BLOOD GAS pH 7.49 (7.35-7.45); CARBOXYHEMOGLOBIN 1.3 % THgb (0.0-6.9); HCO3- 27.4 (22-28); HGB O2 SAT 95.9 g/dF (94-100); Methhemoglobin 1.3 % (1.4-1.5)
[2021-12-04 09:10] LABS: Amphetamine,Urine NEGATIVE (NEGATIVE); Barbiturate,Urine NEGATIVE (NEGATIVE); Benzodiazepine,Urine NEGATIVE (NEGATIVE); Cocaine,Urine NEGATIVE (NEGATIVE); Methadone,Urine NEGATIVE (NEGATIVE); Opiate,Urine NEGATIVE (NEGATIVE); PCP,Urine NEGATIVE (NEGATIVE); THC,Urine NEGATIVE (NEGATIVE)
[2021-12-04 09:12] LABS: INFLUENZA A NEGATIVE (NEGATIVE); INFLUENZA B NEGATIVE (NEGATIVE); RESPIRATORY SYNCTIAL VIRUS NEGATIVE (Negative); SARS-CoV-2 Xpert Express NEGATIVE (NEGATIVE)
[2021-12-04 12:06] VITALS: BP 127/68; PULSE 89
[2021-12-04 17:47] VITALS: O2SAT 95
== END 2021-12-04 12:55 | disposition short-term general hospital (02) ==
LOC: ED 07:36
DX: I63.9 Cerebral infarction, unspecified (principal); R29.810 Facial weakness; R53.1 Weakness; R40.4 Transient alteration of awareness; R47.81 Slurred speech; I10 Essential (primary) hypertension
CPT/HCPCS: 0241U; 36415; 36600; 51702; 70450; 71045; 80053; 80307; 81015; 82375; 82803; 83605; 84436; 84443; 84484; 85025; 85610; 85730; 87086; 93005; 96374; 96376; 99285; 99291; G0480; J0360; A9270-GY